=== PATIENT | male | born 1985 | race Caucasian/White ===

== ENCOUNTER 2023-11-12 19:37 | Emergency (ER) | payer OTHER ==
[2023-11-12] MEDS: Lidocaine 1% 10 ML MDV INJECT ONE (20:35)
[2023-11-12] MEDS: Diphtheria,Pertussis(Acell),Tetanus Vaccine 0.5 ML Syringe IM ONE (20:35)
== END 2023-11-12 20:48 | disposition home or self-care (01) ==
LOC: JD.ED 19:37
DX: S51.812A Laceration without foreign body of left forearm, initial encounter (principal); Z23 Encounter for immunization; W22.8XXA Striking against or struck by other objects, initial encounter; Y99.0 Civilian activity done for income or pay
CPT/HCPCS: 12001; 90471; 90715; 99282-25; 99283; J3490